=== PATIENT | male | born 1985 | race African-American/Black ===

== ENCOUNTER 2017-10-13 06:40 | Emergency (ER) | payer OTHER ==
[~2017-10-13] VITALS: Ht 175.3 cm; Wt 87.5 kg
--- NOTE | ~2017-10-13 | EKG ---
[place] [address] [facility] [place] [address] ELECTROCARDIOGRAM REPORT Name: JONOEMMA Room #: [facility]P [facility]LANDKimberly[facility] [id number] Admission: 10/13/17 Attend Phys: Discharge: 10/13/17 Date of : 81 Report #: [id number] THIS REPORT FOR: //name// [facility] ED Test Date: 2017-10-13 Test Time: 06:53:42 Pat Name: EMMA DE LA CRUZ Department: Room: Gender: M Rn Er: WALDO : 1985 Requested By: Jeferson Heller Order Number: [id number] MD: Deven Patton Measurements Intervals [place] Rate: 72 P: -7 DE: 208 QRS: 45 QRSD: 90 T: 14 QT: 395 QTc: 433 Interpretive Statements Sinus rhythm Borderline prolonged DE interval ST elev, probable normal early repol pattern Baseline wander in lead(s) V2,V4 No previous ECG available for comparison Electronically Signed On 10-13-2017 15:30:37 CEO NA by Deven Patton [email or web address] <ELECTRONICALLY SIGNED> By: Deven Patton MD 10/13/17 1530 [id number] Deven Patton MD /LUCIO
[2017-10-13 07:06] LABS: BASOPHILS 1.1 % (0.0-2.0); EOSINOPHILS 2.9 % (0.0-3.0); HEMATOCRIT 45.7 % (42.0-52.0); HEMOGLOBIN 15.4 gm/dL (14.0-18.0); LYMPHOCYTES 47.1 % (24.0-44.0); MCH 30.7 pg (26.0-34.0); MCHC 33.8 g/dL (28.0-37.0); MCV 90.9 fL (80.0-100.0); MONOCYTES 6.8 % (1.0-8.0); PLATELET COUNT 306 thou/uL (150-400); POLYS 42.1 % (36.0-66.0); RBC 5.03 mil/uL (4.50-6.00); RDW 13.8 % (10.5-14.5); WBC 9.5 thou/uL (4.0-11.0)
[2017-10-13 07:17] LABS: ANION GAP 9 mmol/L (7-16); BUN 7 mg/dL (7-18); CALCIUM 9.4 mg/dL (8.5-10.1); CHLORIDE 108 mmol/L (98-107); CO2 25 mmol/L (21-32); CREATININE 1.1 mg/dL (0.7-1.3); GLUCOSE 108 mg/dL (74-106); POTASSIUM 4.2 mmol/L (3.5-5.1); SODIUM 142 mmol/L (136-145)
[2017-10-13 07:25] LABS: TROPONIN-I < 0.04 ng/mL (<0.06)
[2017-10-13] MEDS ORDERED: NAPROSYN500 MG PO (07:40)
[2017-10-13] MEDS ORDERED: ZOFRAN4 MG PO (07:40)
== END 2017-10-13 08:15 | disposition home or self-care (01) ==
LOC: ER 06:40
PROVIDERS: Emergency Medicine
DX: J11.1 Influenza due to unidentified influenza virus with other respiratory manifestations (principal); F17.210 Nicotine dependence, cigarettes, uncomplicated

== ENCOUNTER 2017-10-28 23:21 | Emergency (ER) | payer OTHER ==
[~2017-10-28] VITALS: Ht 175.3 cm; Wt 91.6 kg
[~2017-10-28 23:21] MED LIST: NAPROSYN500 MG PO; ZOFRAN4 MG PO
== END 2017-10-29 01:00 | disposition home or self-care (01) ==
LOC: ER 23:21
DX: M54.2 Cervicalgia (principal); M53.3 Sacrococcygeal disorders, not elsewhere classified; Z04.1 Encounter for examination and observation following transport accident

== ENCOUNTER 2018-04-07 23:39 | Emergency (ER) | payer OTHER ==
[~2018-04-07] VITALS: Ht 172.7 cm; Wt 86.2 kg
--- NOTE | ~2018-04-07 | EKG ---
[place] [address] [facility] [place] [address] ELECTROCARDIOGRAM REPORT Name: EMMA DE LA CRUZ Anurag Room #: [facility]ITAL[facility]ehuda[facility]ehuda[facility] [id number] Admission: 04/07/18 Attend Phys: Discharge: 04/08/18 Date of : 81 Report #: [id number] THIS REPORT FOR: //name// [facility] ED Test Date: 2018-04-07 Test Time: 23:39:49 Pat Name: EMMA DE LA CRUZ Department: Room: Gender: Plating Foreman: JULES : 1985 Requested By: Jeferson Heller Order Number: [id number] MD: Matt Call Measurements Intervals [place] Rate: 86 P: 46 UT: 201 QRS: 44 QRSD: 91 T: 22 QT: 364 QTc: 436 Interpretive Statements Sinus rhythm ST elev, probable normal early repol pattern Compared to ECG 10/13/2017 06:53:42 No significant changes Electronically Signed On 04-08-2018 8:06:56 CDT by Matt Call [email or web address] <ELECTRONICALLY SIGNED> By: Matt Call MD, [facility] 04/08/18 [id number] Matt Call MD, FACC /EPI
[2018-04-08 00:31] LABS: ABSOLUTE NEUTROPHILS 5.4 thou/uL (1.4-8.2); BASOPHILS 1.1 % (0.0-2.0); EOSINOPHILS 2.5 % (0.0-3.0); HEMATOCRIT 41.9 % (42.0-52.0); HEMOGLOBIN 14.4 gm/dL (14.0-18.0); LYMPHOCYTES 46.3 % (24.0-44.0); MCH 31.2 pg (26.0-34.0); MCHC 34.2 g/dL (28.0-37.0); MCV 91.1 fL (80.0-100.0); MONOCYTES 6.6 % (1.0-8.0); PLATELET COUNT 264 thou/uL (150-400); POLYS 43.5 % (36.0-66.0); RDW 13.6 % (10.5-14.5); WBC 12.4 thou/uL (4.0-11.0)
[2018-04-08 00:34] LABS: CREATININE 1.1 mg/dL (0.7-1.3); POTASSIUM 3.7 mmol/L (3.5-5.1)
[2018-04-08] MEDS ORDERED: NAPROSYN500 MG PO (01:31)
[2018-04-08 01:40] VITALS: BP 106/65
== END 2018-04-08 01:44 | disposition home or self-care (01) ==
LOC: ER 23:39
PROVIDERS: Emergency Medicine
DX: R51 Headache (principal); R42 Dizziness and giddiness; F17.210 Nicotine dependence, cigarettes, uncomplicated

== ENCOUNTER 2019-01-19 13:26 | Emergency (ER) | payer OTHER ==
[~2019-01-19] VITALS: Ht 172.7 cm; Wt 88.5 kg
[2019-01-19 13:27] VITALS: BP 110/65
[2019-01-19] MEDS ORDERED: NAPROSYN500 MG PO (14:09)
== END 2019-01-19 14:15 | disposition home or self-care (01) ==
LOC: ER 13:26
DX: S63.592A Other specified sprain of left wrist, initial encounter (principal); F17.210 Nicotine dependence, cigarettes, uncomplicated; G43.909 Migraine, unspecified, not intractable, without status migrainosus; W18.39XA Other fall on same level, initial encounter; Y92.89 Other specified places as the place of occurrence of the external cause; Y93.67 Activity, basketball; Y99.8 Other external cause status

== ENCOUNTER 2019-08-08 10:08 | Emergency (ER) | payer OTHER ==
[~2019-08-08] VITALS: Ht 175.3 cm; Wt 88.5 kg
[2019-08-08] MEDS ORDERED: DOXYCYCLINE 10100 MG PO (11:59)
[2019-08-08] MEDS ORDERED: PREDNISONE 20 M20 M1 PO (11:59)
[2019-08-08] MEDS ORDERED: PROAIR HFA8.5 GM INH (11:59)
[2019-08-08 13:30] VITALS: BP 118/65
== END 2019-08-08 13:31 | disposition home or self-care (01) ==
LOC: ER 10:08
DX: R05 Cough (principal); R06.2 Wheezing; F17.210 Nicotine dependence, cigarettes, uncomplicated; G43.909 Migraine, unspecified, not intractable, without status migrainosus